=== PATIENT | male | born 1940 | race Two or more races ===

== ENCOUNTER 2016-11-26 09:22 | Inpatient (IN) | payer BC, MEDICARE, OTHER ==
[2016-11-26 11:00] LABS: Hematocrit 41 % (42-52); Hemoglobin 13.8 g/dl (14.0-18.0); Mean Corpuscular HGB Conc 34 g/dl (31-36); Mean Corpuscular Hemoglobin 31 pg (27-31); Mean Corpuscular Volume 91 fL (80-94); Mean Platelet Volume 10 um3 (7.4-10.4); Red Blood Count 4.47 10^6/ul (4.0-5.4); Red Cell Distribution Width 14 % (10.5-15); White Blood Count 11.3 10^3/ul (3.5-10.8)
[2016-11-26 11:11] LABS: ALT < 3 U/L (7-52); AST 10 U/L (13-39); Albumin 4.2 g/dL (3.2-5.2); Alkaline Phosphatase 61 U/L (34-104); Anion Gap 7 mmol/L (2-11); BUN/Creatinine Ratio 22.8 (8-20); Blood Urea Nitrogen 21 mg/dL (6-24); CO2 Carbon Dioxide 26 mmol/L (22-32); Calcium 9.1 mg/dL (8.6-10.3); Chloride 103 mmol/L (101-111); EGFR African American 103.4 (>60); EGFR Non-African American 80.4 (>60); Globulin 2.6 g/dL (2-4); Glucose 99 mg/dL (70-100); Potassium 4.1 mmol/L (3.5-5.0); Sodium 136 mmol/L (133-145); Total Protein 6.8 g/dL (6.4-8.9)
--- NOTE | 2016-11-26 11:19 | RAD ---
Indication: Ataxia. CT of the brain was performed without IV contrast. Comparison is made with a prior MRI dated August 18, 2012. Ventricular structures are midline. No midline shift is noted. The extraction spaces are unremarkable. There is no evidence of intracranial mass or hemorrhage. No other high or low density lesions are noted. Mastoid air cells and paranasal sinuses are unremarkable. Atherosclerosis of the right vertebral artery is noted. IMPRESSION: NO INTRACRANIAL MASS OR HEMORRHAGE IS NOTED.
--- NOTE | 2016-11-26 11:19 | RAD ---
Indication: Cough, weakness. 2 views of the chest including dual energy PA views are reviewed. No prior study is available for comparison. No mediastinal shift is noted. Heart is of normal size and configuration. Lung arias appear clear. IMPRESSION: No active cardiopulmonary disease is noted.
[2016-11-26] MEDS ORDERED: NS 0.9% 1000 ML* 1,000 ML IV ONE (11:24)
[2016-11-26] MEDS ORDERED: Acetaminophen TAB* 325 MG PO ONE (11:25)
[2016-11-26 13:59] LABS: Urine Bilirubin Negative (Negative); Urine Glucose Negative (Negative); Urine Nitrite Negative (Negative)
[2016-11-26] MEDS ORDERED: Levofloxacin 750 MG IVPREMIX(* 750 MG/150 ML BAG IVPB ONE (14:07)
--- NOTE | 2016-11-26 15:00 | ED ---
Kianna To Matthew, scribed for Alban Burton MD on 11/26/16 at 1059 . Complex/Multi-Sys Presentation - HPI Summary HPI Summary: A 76 y/o male presents to the ED for increased unsteadiness since 1.5 weeks ago. 1.5 weeks ago, the patient sustained a mechanical fall and fractured his nose. He was seen at [facility] and was to follow-up with an ENT. He has a Hx of Parkinson's disease; however, the unsteadiness is worse than baseline. He denies headache. The patient's also c/o a persistent cough. He also had fracture is skull in 2010 after sustaining a fall. - History Of Current Complaint Chief Complaint: EDGeneral Time Seen by Provider: 11/26/16 10:05 Hx Obtained From: Patient Onset/Duration: Lasting Weeks - 1.5, Still Present Timing: Constant Severity Currently: Moderate Severity Initially: Moderate Associated Signs And Symptoms: Positive: Fever, Other - unsteadiness. Negative : Headache - Allergies/Home Medications Allergies/Adverse Reactions: Allergies Allergy/AdvReac Type Severity Reaction Status Date / Time No Known Allergies Allergy Verified 11/26/16 11:53 Home Medications: Home Medications Amantadine CAP* [Symmetrel CAP*] 100 mg PO DAILY 11/26/16 [History Confirmed 05/05] Carbidopa/Levodop 25/100 MG(*) [Sinemet 25/100 TAB(*)] 1 tab PO SEE INSTRUCTIONS 11/26/16 [History Confirmed 11/26/16] Ibuprofen [Advil] 600 mg PO BID PRN 11/26/16 [History Confirmed 11/26/16] Mirtazapine TAB* [Remeron TAB*] 45 mg PO BEDTIME 11/26/16 [History Confirmed 05/05] Sennosides-Docusate Sodium [Senna-S 8.6-50 mg] 1 tab PO BEDTIME 11/26/16 [ History Confirmed 11/26/16] Sennosides-Docusate Sodium [Senna-S 8.6-50 mg] 1 tab PO TID 11/26/16 [History Confirmed 11/26/16] Sennosides-Docusate Sodium [Senna-S 8.6-50 mg] 2 tab PO DAILY 11/26/16 [History Confirmed 11/26/16] rOPINIRole TAB* [Requip TAB*] 1 mg PO QID 11/26/16 [History Confirmed 11/26/16] PMH/Surg Hx/FS Hx/Imm Hx Cardiovascular History: Denies: Hx Pacemaker/ICD Sensory History: Denies: Hx Hearing Aid Neurological History: Reports: Other Neuro Impairments/Disorders - memory loss, parkinson's dx from agent orange,left arm Psychiatric History: Denies: Hx Panic Disorder - Surgical History Surgery Procedure, Year, and Place: couple years ago,screws in face from falling ,[facility] Infectious Disease History: No Infectious Disease History: Denies: Traveled Outside the [place] in Last 30 Days - Family History Known Family History: Positive: Unknown - The patient is adopted. - Social History Lives: With Family Alcohol Use: None Hx Substance Use: No Substance Use Type: Reports: None Hx Tobacco Use: Yes Type: Cigars Review of Systems Positive: Fever Eyes: Negative ENT: Negative Cardiovascular: Negative Positive: Cough Gastrointestinal: Negative Genitourinary: Negative Musculoskeletal: Negative Skin: Negative Neurological: Other - unsteadiness Negative: Headache Psychological: Normal All Other Systems Reviewed And Are Negative: Yes Physical Exam Triage Information Reviewed: Yes Vital Signs On Initial Exam: Initial Vitals Temp Pulse Resp BP Pulse Ox 100.2 F 74 24 111/64 93 11/26/16 09:25 11/26/16 09:25 11/26/16 09:25 11/26/16 09:25 11/26/16 09:25 Vital Signs Reviewed: Yes Appearance: Positive: Well-Appearing, No Pain Distress Skin: Positive: Warm, Skin Color Reflects Adequate Perfusion, Dry Head/Face: Positive: Normal Head/Face Inspection Eyes: Positive: Normal ENT: Positive: Normal ENT inspection Neck: Positive: Supple, Nontender Respiratory/Lung Sounds: Positive: Breath Sounds Present, Other - Crackles in the left lower lung field Cardiovascular: Positive: RRR Abdomen Description: Positive: Nontender, Soft Bowel Sounds: Positive: Present Musculoskeletal: Positive: Normal, Strength/ROM Intact Neurological: Positive: Sensory/Motor Intact, Alert, Oriented to Person Place, Time Diagnostics - Vital Signs Vital Signs Temp Pulse Resp BP Pulse Ox 11/26/16 09:30 21 111/64 11/26/16 09:25 100.2 F 74 24 111/64 93 - Laboratory Lab Results: Lab Results 11/26/16 11/26/16 11/26/16 Range/Units 09:50 09:50 09:50 WBC 11.3 H (3.5-10.8) 10^3/ul RBC 4.47 (4.0-5.4) 10^6/ul Hgb 13.8 L (14.0-18.0) g/dl Hct 41 L (42-52) % MCV 91 (80-94) fL MCH 31 (27-31) pg MCHC 34 (31-36) g/dl RDW 14 (10.5-15) % Plt Count 206 (150-450) 10^3/ul MPV 10 (7.4-10.4) um3 Neut % (Auto) 87.8 H (38-83) % Lymph % (Auto) 4.5 L (25-47) % Edmunds % (Auto) 7.2 (1-9) % Eos % (Auto) 0.2 (0-6) % Baso % (Auto) 0.3 (0-2) % Absolute Neuts (auto) 9.9 H (1.5-7.7) 10^3/ul Absolute Lymphs (auto) 0.5 L (1.0-4.8) 10^3/ul Absolute Monos (auto) 0.8 (0-0.8) 10^3/ul Absolute Eos (auto) 0 (0-0.6) 10^3/ul Absolute Basos (auto) 0 (0-0.2) 10^3/ul Absolute Nucleated RBC 0 10^3/ul Nucleated RBC % 0 INR (Anticoag Therapy) 1.26 H (0.89-1.11) Sodium 136 (133-145) mmol/L Potassium 4.1 (3.5-5.0) mmol/L Chloride 103 (101-111) mmol/L Carbon Dioxide 26 (22-32) mmol/L Anion Gap 7 (2-11) mmol/L BUN 21 (6-24) mg/dL Creatinine 0.92 (0.67-1.17) mg/dL Est GFR ( Amer) 103.4 (>60) Est GFR (Non-Af Amer) 80.4 (>60) BUN/Creatinine Ratio 22.8 H (8-20) Glucose 99 (70-100) mg/dL Calcium 9.1 (8.6-10.3) mg/dL Total Bilirubin 1.00 (0.2-1.0) mg/dL AST 10 L (13-39) U/L ALT < 3 L (7-52) U/L Alkaline Phosphatase 61 (34-104) U/L C-Reactive Protein 72.70 H (< 5.00) mg/L Total Protein 6.8 (6.4-8.9) g/dL Albumin 4.2 (3.2-5.2) g/dL Globulin 2.6 (2-4) g/dL Albumin/Globulin Ratio 1.6 (1-3) Urine Color Urine Appearance Urine pH (5-9) Ur Specific Red[place] (1.010-1.030) Urine Protein (Negative) Urine Ketones (Negative) Urine Blood (Negative) Urine Nitrate (Negative) Urine Bilirubin (Negative) Urine Urobilinogen (Negative) Ur Leukocyte Esterase (Negative) Urine Glucose (Negative) 11/26/16 Range/Units 13:20 WBC (3.5-10.8) 10^3/ul RBC (4.0-5.4) 10^6/ul Hgb (14.0-18.0) g/dl Hct (42-52) % MCV (80-94) fL MCH (27-31) pg MCHC (31-36) g/dl RDW (10.5-15) % Plt Count (150-450) 10^3/ul MPV (7.4-10.4) um3 Neut % (Auto) (38-83) % Lymph % (Auto) (25-47) % Edmunds % (Auto) (1-9) % Eos % (Auto) (0-6) % Baso % (Auto) (0-2) % Absolute Neuts (auto) (1.5-7.7) 10^3/ul Absolute Lymphs (auto) (1.0-4.8) 10^3/ul Absolute Monos (auto) (0-0.8) 10^3/ul Absolute Eos (auto) (0-0.6) 10^3/ul Absolute Basos (auto) (0-0.2) 10^3/ul Absolute Nucleated RBC 10^3/ul Nucleated RBC % INR (Anticoag Therapy) (0.89-1.11) Sodium (133-145) mmol/L Potassium (3.5-5.0) mmol/L Chloride (101-111) mmol/L Carbon Dioxide (22-32) mmol/L Anion Gap (2-11) mmol/L BUN (6-24) mg/dL Creatinine (0.67-1.17) mg/dL Est GFR ( Amer) (>60) Est GFR (Non-Af Amer) (>60) BUN/Creatinine Ratio (8-20) Glucose (70-100) mg/dL Calcium (8.6-10.3) mg/dL Total Bilirubin (0.2-1.0) mg/dL AST (13-39) U/L ALT (7-52) U/L Alkaline Phosphatase (34-104) U/L C-Reactive Protein (< 5.00) mg/L Total Protein (6.4-8.9) g/dL Albumin (3.2-5.2) g/dL Globulin (2-4) g/dL Albumin/Globulin Ratio (1-3) Urine Color Estela Urine Appearance Clear Urine pH 5.0 (5-9) Ur Specific Red[place] 1.029 (1.010-1.030) Urine Protein Negative (Negative) Urine Ketones 1+ H (Negative) Urine Blood Negative (Negative) Urine Nitrate Negative (Negative) Urine Bilirubin Negative (Negative) Urine Urobilinogen Negative (Negative) Ur Leukocyte Esterase Negative (Negative) Urine Glucose Negative (Negative) Result Diagrams: 11/26/16 09:50 11/26/16 09:50 Lab Statement: Any lab studies that have been ordered have been reviewed, and results considered in the medical decision making process. - Radiology CXR Xray Interpretation: No Acute Changes - IMPRESSION: No active cardiopulmonary disease is noted. Radiology Interpretation Completed By: Radiologist - CT Brain CT CT Interpretation: No Acute Changes - IMPRESSION: NO INTRACRANIAL MASS OR HEMORRHAGE IS NOTED. CT Interpretation Completed By: Radiologist Complex Multi-Symp Course/Dx Course Of Treatment: Mr. Szymanski spiked a fever while he was here and he had a mild leukocytosis. His symptoms have been progressive for over a week but have gotten to the point that his can't manage him at home. - Diagnoses Provider Diagnoses: Fever, Weak - Physician Notifications Discussed Care Of Patient With: Dr. Lara Time Discussed With Above Provider: 14:30 Discharge - Discharge Plan Condition: Stable Disposition: ADMITTED TO [facility] Referrals: Radha Massey [Primary Care Provider] - The documentation as recorded by the Kianna vaughn Matthew accurately reflects the service I personally performed and the decisions made by me, Alban Burton MD.
[2016-11-26] MEDS ORDERED: Acetaminophen TAB* 325 MG PO PRN (17:04)
[2016-11-26] MEDS ORDERED: NS 0.9% 1000 ML* 1,000 ML IV SCH (17:15)
--- NOTE | 2016-11-26 20:50 | HP ---
CC: SUSAN Miranda HISTORY AND PHYSICAL: DATE OF ADMISSION: 11/26/16 PRIMARY CARE PHYSICIAN: SUSAN Miranda CHIEF COMPLAINT: Fall. HISTORY OF PRESENT ILLNESS: Juliocesar Szymanski is a 76-year-old male with a history of Parkinson's, who was brought in by his , stated that the patient was unsteady on his feet today and fell several times. The patient himself denies any problems and he was attempting to leave the ER. The patient 's also stated that over the past week, the patient had been behaving "off." He had been diffe rent and not himself. She describes him as more stubborn and more forgetful. The patient does have a history of baseline problem with short term memory, there was Parkinson's. Today in the morning, the patient coughed out copious amount of purulent sputum. He had been coughin g intermittently for the past couple of days. Also, in the emergency room, he has had a fever of 10 0.8 degrees. He appears to have pneumonia on his x-ray with a retrocardiac infiltrate, although it is read by the radiologist as negative. He is going to be placed on overnight observation for intra venous hydration on antibiotics. PAST MEDICAL HISTORY: 1. History of memory loss. 2. History of Parkinson's. 3. History of bilateral inguinal hernia repairs. 4. History of agent orange exposure while in service in [place]. MEDICATIONS: Include: 1. Sinemet 25/100. The patient takes two tablets at 5 a.m., 9 a.m., 1 p.m., 5 p.m. and 9 p.m. 2. The patient also takes Requip 1 mg tablet at 5 a.m., 9 a.m., 1 p.m. and 5 p.m. 3. Amantadine. The patient takes at 1 p.m. daily and mirtazapine at 5 p.m. daily. 4. The patient also is on a strict regimen with Senna and docusate combination of 1 tablet at bedti me, 1 tablet 3 times a day and 2 tablets daily in the morning. ALLERGIES: No known drug allergies. FAMILY HISTORY: The patient is adopted. SOCIAL HISTORY: The patient denies tobacco, alcohol or drug use. He is retired, lives with his wif e, who is his surrogate. His 's first name is Tana. REVIEW OF SYSTEMS: Please see history of present illness. The patient is rather as poor historian. The patient's stated that the patient had unsteady weight and had been weak for the past temo ral days. Apparently, the appetite had been good. He had been afebrile. He has been coughing for the past couple of days. She did not notice him being febrile and the patient also denies any fevers . All the remaining 14 systems were reviewed with the patient and the patient's and were otherwis e negative. PHYSICAL EXAMINATION GENERAL: The patient is a very pleasant 76-year-old male who is in no acute distress. The patient is alert, awake, and oriented x3 although he states that his age is 74 years old. VITAL SIGNS: Blood pressure of 125/64, heart rate of 66 and regular, respiratory rate 19, oxygen sa turation is 97% on room air, temperature of 97.2. HEENT: Head is atraumatic and normocephalic. Eyes, pupils equal, round, reactive to light and acco mmodation. Oropharynx clear. Mucosa moist. NECK: Supple. No JVD. No bruits bilaterally. RESPIRATORY: Rhonchi in the left lung base, otherwise clear. CARDIOVASCULAR: Regular rate and rhythm. No murmur. ABDOMEN: Soft and nontender. Bowel sounds present in all 4 quadrants. EXTREMITIES: There is no edema. Pulses +2 bilaterally. No clubbing or cyanosis. NEUROLOGIC: On neuro evaluation speech clear. Cranial nerves II through XII are grossly intact. M otor strength is 5/5 bilaterally. The patient's gait is markedly abnormal and he used to ambulate w ith at least one person assist and a walker. PSYCHIATRIC: Pleasant and comfortable on evaluation with no evidence of anxiety or depression. DIAGNOSTIC STUDIES: Brain CT obtained on 11/26/16. "No intracranial mass or hemorrhage noted." Portable chest x-ray. Impression: "No active cardiopulmonary disease is noted." LABORATORY DATA: White blood cell count of 11.3, hemoglobin of 13.8, hematocrit of 41, and platelet s of 206. Sodium was 136, potassium 4.1, chloride 103, carbon dioxide 26, BUN 21, creatinine 0.92. Liver func tion is unremarkable. C-reactive protein of 72. Urinalysis was unremarkable apart from trace of ketones. Influenza A and B were negative. ASSESSMENT AND PLAN: A 76-year-old male with a history of Parkinson's, comes in with generalized we akness, unsteady gait. The patient clinically appears to have pneumonia. For community acquired pneumonia, the patient received one dose of Levaquin in the emergency room. Due to his history of memory issues, I am going to continue him on different medications of ceftriax one and azithromycin. Urine legionella and Strep pneumo antigens are going to be obtained. I will also place him on gentle intravenous hydration. In regards to the patient's Parkinson's medications, those are going to be continued as previously s cheduled at home. For DVT prophylaxis, the patient is going to be placed on heparin subcutaneously. The patient appears slightly dehydrated and she is going to be placed on intravenous saline as sha pachecod above. Due to history of falls, physical therapy, occupational therapy will see the patient in evaluation. Code status is full. TIME SPENT: Approximately 65 minutes were spent on the admission of this patient, more than half th at time was spent [id number] with the patient during the interview and physical exam. [id number]/[facility] #: [id number]
[2016-11-26] MEDS ORDERED: Senna/Docusate (NF) TAB PO SCH ×2 (21:00)
[2016-11-26] MEDS ORDERED: Docusate CAP* 100 MG PO SCH (21:00)
[2016-11-26] MEDS: Docusate CAP* 100 MG PO SCH (21:07)
[2016-11-26] MEDS: Senna TAB PO SCH (21:07)
[2016-11-26] MEDS: Carbidopa/Levodop 25/100 MG TAB(*) PO SCH (21:07)
[2016-11-26] MEDS: Heparin VIAL(*) 5000 UNITS/ML VIAL (FIVE THOUSAND) SUBCUT SCH (21:07)
[2016-11-27] MEDS: Carbidopa/Levodop 25/100 MG TAB(*) PO SCH ×5 (05:10→20:57)
[2016-11-27] MEDS: rOPINIRole TAB* 1 MG PO SCH ×4 (05:10→17:13)
[2016-11-27] MEDS: Senna TAB PO SCH ×5 (05:10→20:59)
[2016-11-27] MEDS: Heparin VIAL(*) 5000 UNITS/ML VIAL (FIVE THOUSAND) SUBCUT SCH ×3 (05:11→21:00)
[2016-11-27] MEDS: Docusate CAP* 100 MG PO SCH ×5 (05:55→21:00)
[2016-11-27 06:08] LABS: Hematocrit 37 % (42-52); Hemoglobin 12.3 g/dl (14.0-18.0); Mean Corpuscular HGB Conc 34 g/dl (31-36); Mean Corpuscular Hemoglobin 31 pg (27-31); Mean Corpuscular Volume 92 fL (80-94); Mean Platelet Volume 9 um3 (7.4-10.4); Red Blood Count 4.02 10^6/ul (4.0-5.4); Red Cell Distribution Width 14 % (10.5-15); White Blood Count 5.9 10^3/ul (3.5-10.8)
[2016-11-27 06:33] LABS: BUN/Creatinine Ratio 22.8 (8-20); Calcium 8.4 mg/dL (8.6-10.3); EGFR African American 103.4 (>60); EGFR Non-African American 80.4 (>60)
[2016-11-27] MEDS: Azithromycin IV(*) 500 MG in NS 0.9% 250 ML* 250 ML IVPB SCH (08:29)
[2016-11-27] MEDS ORDERED: Senna/Docusate (NF) TAB PO SCH (09:00)
[2016-11-27] MEDS: cefTRIAXone VIAL(*) 1,000 MG in NS 0.9% 50 ML* 50 ML IVPB SCH (10:02)
--- NOTE | 2016-11-27 11:59 | PN ---
Subjective Date of Service: 11/27/16 Interval History: HOSPITALIST PROGRESS NOTE Patient seen and examined at bedside. He feels better today. Still has productive cough with grayish sputum, but denies dyspnea or chest pain. Tolerating diet well. Transferred from bed to chair with assistance, but has not ambulated yet. Family History: Unchanged from Admission Social History: Unchanged from Admission Past Medical History: Unchanged from Admission Objective Active Medications: Acetaminophen (Tylenol Tab*) 650 mg PO Q4H PRN PRN Reason: FEVER/PAIN Amantadine HCl (Symmetrel Cap*) 100 mg PO 1300 [facility] Carbidopa/Levodopa (Sinemet 25/100 Tab(*)) 2 tab PO 2100 [facility] Last Admin: 11/26/16 21:07 Dose: 2 tab Carbidopa/Levodopa (Sinemet 25/100 Tab(*)) 2 tab PO 0500,0900,1300,1700 [facility] Last Admin: 11/27/16 08:27 Dose: 2 tab Docusate Sodium (Colace Cap*) 200 mg PO 0600 [facility] Last Admin: 11/27/16 05:55 Dose: 200 mg Docusate Sodium (Colace Cap*) 100 mg PO 1000,1400,1800,2200 [facility] Last Admin: 11/27/16 08:28 Dose: 100 mg Heparin Sodium (Porcine) (Heparin Vial(*)) 5,000 units SUBCUT Q8HR [facility] Last Admin: 11/27/16 05:11 Dose: 5,000 units Ceftriaxone Sodium 1,000 mg/ (Sodium Chloride) 50 mls @ 200 mls/hr IVPB Q24H [facility] Last Admin: 11/27/16 10:02 Dose: 200 mls/hr Azithromycin 500 mg/ Sodium (Chloride) 250 mls @ 250 mls/hr IVPB Q24H [facility] Last Admin: 11/27/16 08:29 Dose: 250 mls/hr Mirtazapine (Remeron Tab*) 45 mg PO 1700 [facility] Ropinirole HCl (Requip Tab*) 1 mg PO 0500,0900,1300,1700 [facility] Last Admin: 11/27/16 08:29 Dose: 1 mg Senna (Senokot Tab*) 2 tab PO 0600 [facility] Last Admin: 11/27/16 05:10 Dose: 2 tab Senna (Senokot Tab*) 1 tab PO 1000,1400,1800,2200 [facility] Last Admin: 11/27/16 08:28 Dose: 1 tab Vital Signs 11/26/16 11/27/16 23:52 04:16 Temperature 97.9 F 97.6 F Pulse Rate 61 57 Respiratory 16 16 Rate Blood Pressure 120/63 142/65 (mmHg) O2 Sat by Pulse 95 97 Oximetry Oxygen Devices in Use Now: None Appearance: Pleasant elderly male sitting up in a chair in NAD. Eyes: No Scleral Icterus Ears/Nose/Mouth/Throat: Mucous Membranes Moist Neck: Trachea Midline Respiratory: Symmetrical Chest Expansion and Respiratory Effort, - - BS+ bilaterally with coarse crackles on right base Cardiovascular: RRR - Normal S1 and S2 Abdominal: NL Sounds; No Tenderness; No Distention Extremities: No Edema Neurological: Alert and Oriented x 3, NL Muscle Strength and Tone Lines/Tubes/Other Access: Clean, Dry and Intact Peripheral IV Nutrition: Taking PO's Result Diagrams: 11/27/16 05:22 11/27/16 05:22 Assess/Plan/Problems-Billing Assessment: Mr. Szymanski is a 76yo M with PMH of Parkison's disease, who presented to ED with c/o weakness and falls, found to have pneumonia. - Patient Problems (1) Pneumonia Comment: - Community acquired pneumonia. - CxR reviewed - agree with retrocardiac infiltrate. - Cultures show no growth so far and Influenza was negative. - Continue Ceftriaxone and Zithromax. - Follow Legionella and pneumococal Ags. (2) Physical deconditioning Comment: - Secondary to infection on patient with known Parkinson's. - Awaiting PT evaluation. (3) Parkinson disease Comment: - Continue Amantadine and Sinemet. (4) DVT prophylaxis Comment: - SQ heparin. (5) Full code status Status and Disposition: Inpatient. Anticipate d/c in AM. With patient's permission his (Teresa Szymanski) was called and I left a message asking her to call me back.
[2016-11-27] MEDS ORDERED: Amantadine CAP* 100 MG PO SCH (13:00)
[2016-11-27] MEDS ORDERED: Mirtazapine TAB* 15 MG PO SCH (17:00)
[2016-11-27] MEDS ORDERED: CMCS Melatonin (NF) 3 MG TAB PO PRN (20:52)
[2016-11-28] MEDS: Senna TAB PO SCH ×2 (06:42→08:33)
[2016-11-28] MEDS: Heparin VIAL(*) 5000 UNITS/ML VIAL (FIVE THOUSAND) SUBCUT SCH (06:42)
[2016-11-28] MEDS: rOPINIRole TAB* 1 MG PO SCH ×2 (06:44→08:33)
[2016-11-28] MEDS: Carbidopa/Levodop 25/100 MG TAB(*) PO SCH ×2 (06:46→08:33)
[2016-11-28] MEDS: Docusate CAP* 100 MG PO SCH ×2 (06:47→08:33)
[2016-11-28] MEDS: Azithromycin IV(*) 500 MG in NS 0.9% 250 ML* 250 ML IVPB SCH (08:33)
[2016-11-28] MEDS: cefTRIAXone VIAL(*) 1,000 MG in NS 0.9% 50 ML* 50 ML IVPB SCH (10:03)
[2016-11-28 11:12] VITALS: BP 149/67
[2016-11-28] MEDS ORDERED: ceFUROXime TAB(*) 250 MG PO ONE (12:15)
--- NOTE | 2016-11-28 14:09 | DS ---
DISCHARGE SUMMARY: DATE OF ADMISSION: 11/26/16 DATE OF DISCHARGE: 11/28/16 PRIMARY CARE PROVIDER: Radha Massey NP, at the [facility]. DISCHARGE DIAGNOSES: 1. Community-acquired pneumonia. 2. Deconditioning. 3. Mild sundowning. SECONDARY DIAGNOSES: 1. Parkinson's disease. 2. Paroxysmal atrial fibrillation. 3. Mild cognitive disorder. 4. Vitamin B12 deficiency anemia. 5. History of visual hallucinations. 6. Chronic back pain. 7. Major depression. 8. History of fall. 9. Chronic PTSD following combat. 10. Dysphagia. 11. History of basal cell carcinoma of the scalp. 12. Status post bilateral inguinal hernia repairs. MEDICATION LIST: 1. Amantadine 100 mg p.o. at 1 p.m. 2. Carbidopa/levodopa 25/100 mg two tablets p.o. at 5 a.m. 9 a.m. 1 p.m. 5 p.m. and 2100. 3. Ibuprofen 600 mg p.o. b.i.d. as needed for pain. 4. Mirtazapine 45 mg p.o. at 5 p.m. 5. Requip 1 mg p.o. at 5 a.m., 9 a.m., 1 p.m., and 5 p.m. 6. Sennoside/docusate 8.6/50 mg two tablets p.o. 4 times a day as needed to soften stool as prescribed by his PCP, but the patient is taking 2 tablets p.o. in the morning and then 1 tablet 3 times a day, plus one other tablet at bedtime. 7. Melatonin 6 mg p.o. at bedtime as needed for insomnia. New Medications: 1. Zithromax 250 mg p.o. daily for 4 more days. 2. Ceftin 250 mg p.o. b.i.d. for 5 more days. 3. Guaifenesin 600 mg p.o. b.i.d. as needed for cough. HOSPITAL COURSE: Mr. Szymanski is a 76-year-old male with a past medical history as stated above, that was brought into the emergency room after sustaining a fall at home. As per HPI, the patient's stated that the patient was behaving "off," confused, more stubborn, and forgetful. It was also noted that the patient had coughed up copious amounts of purulent sputum. For more details about his presentation, I refer you to his history and physical. The patient was admitted under the impression of community-acquired pneumonia and his chest x-ray was suggestive of retrocardiac infiltrate. The patient was started on antibiotics and he became afebrile with stable vital signs. He had improvement of his minimal leukocytosis and blood cultures showed no growth so far and influenza test was negative. Please note that at the time of this dictation, his pneumococcal and legionella antigens in the urine are pending and the results should be followed as outpatient. The patient was seen by physical therapy and he was felt to have no skilled PT needs at this time. He also did well with occupational therapy. He was felt to be stable for discharge today and he was referred to S to receive services at home. The patient did experience mild sundowning while in the hospital and in talking to his , this is not unusual. She describes a prior admission in [place] in 2010 when the patient became very confused, especially in the evenings. On this admission, he did have some confusion at night, but he did not require medications and nursing staff was able to redirection him. This morning, the patient's mental status appears to be at his baseline. He is not confused. He states that he is feeling well and he was deemed stable to be discharged home today. PHYSICAL EXAMINATION: Vital Signs: Temperature 97.9, heart rate is 65, respiratory rate is 16, oxygen saturation 96% on room air, and blood pressure is 146/64. General Appearance: The patient is a pleasant, elderly male, lying in bed, in no acute distress. CVS: Normal S1 and S2. Regular rate and rhythm. Chest: Breath sounds present bilaterally with scattered rhonchi in the right base, but no other added sounds. Abdomen is soft, nontender, and nondistended. Bowel sounds present. Extremities: No edema. Neuro: He is alert, awake, and oriented x3. Able to move all 4 extremities. DIET: Regular diet. ACTIVITY: As tolerated. DISPOSITION: To home with visiting nurse services. STATUS WHILE IN THE HOSPITAL: Inpatient. Please keep in mind, this is a summarized version of this patient's hospital stay. If you need more information, please feel free to call me at [phone] or please obtain the full medical records. The patient will follow up with his primary care provider, Radha Massey NP, in 4 to 7 days. The patient's was called and updated about this plan. She is in agreement with discharge. All questions were answered to their satisfaction. TIME SPENT: Approximately 45 minutes was spent to complete this discharge. CC: Radha Massey NP* [id number]/[facility] #: [id number] MTDD
== END 2016-11-28 12:20 | disposition home health service (06) | DRG 194 ==
LOC: ED 09:22 → MED 15:22 → OBSVTOIN 11-27 11:44
PROVIDERS: ADMIT Internal Medicine; ATTEND Internal Medicine
DX: J18.9 Pneumonia, unspecified organism (principal); F05 Delirium due to known physiological condition; G20 Parkinson's disease; D51.9 Vitamin B12 deficiency anemia, unspecified; E86.0 Dehydration; I48.0 Paroxysmal atrial fibrillation; F32.9 Major depressive disorder, single episode, unspecified; F43.12 Post-traumatic stress disorder, chronic; F09 Unspecified mental disorder due to known physiological condition; G89.29 Other chronic pain; M54.9 Dorsalgia, unspecified; Z91.81 History of falling; Z85.89 Personal history of malignant neoplasm of other organs and systems; Z87.891 Personal history of nicotine dependence
CPT/HCPCS: 36415; 70450; 71020; 80048; 80053; 81003; 85025; 85610; 86140; 87040; 87502; 87899; 99406; A9270-GY; G0378; G8978-GP-CI; G8979-GP-CH; G8980-GP-CI; J0456; J0696; J1644

== ENCOUNTER 2018-01-13 12:38 | Emergency (ER) | payer SELFPAY ==
[2018-01-13] MEDS ORDERED: Tetan/Diph/Pertus SYR(Tdap)* 0.5 ML SYR(BOOSTRIX) use SYR IM ONE (13:15)
--- NOTE | 2018-01-13 13:39 | RAD ---
HISTORY: Unwitnessed fall COMPARISONS: November 26, 2016 VIEWS: 1: frontal portable view of the chest at 1:30 PM FINDINGS: LINES AND TUBES: None. CARDIOMEDIASTINAL SILHOUETTE: There is a retrocardiac density on the right of the vertebral column. This can be identified on the November 26, 2016 examination and is stable, and may represent a prominent osteophyte. The stability suggests an indolent process. The cardiomediastinal silhouette is otherwise normal for portable technique. PLEURA: The costophrenic angles are sharp. No pleural abnormalities are noted. LUNG PARENCHYMA: The lungs are clear. ABDOMEN: The upper abdomen is clear. There is no subphrenic gas. BONES AND SOFT TISSUES: No bone or soft tissue abnormalities are noted. IMPRESSION: NO ACTIVE CARDIOPULMONARY DISEASE.
[2018-01-13 13:53] LABS: ABS Basophils 0 10^3/ul (0-0.2); ABS Eosinophils 0 10^3/ul (0-0.6); ABS Lymphocytes 0.6 10^3/ul (1.0-4.8); ABS Monocytes 0.6 10^3/ul (0-0.8); ABS Neutrophils 5.4 10^3/ul (1.5-7.7); ABS Nucleated RBC 0 10^3/ul; Eosinophil % 0.2 % (0-6); Hematocrit 36 % (42-52); Hemoglobin 12.3 g/dl (14.0-18.0); Lymphocyte % 8.5 % (25-47); Mean Corpuscular HGB Conc 34 g/dl (31-36); Mean Corpuscular Hemoglobin 32 pg (27-31); Mean Corpuscular Volume 92 fL (80-94); Mean Platelet Volume 8.2 um3 (7.4-10.4); Nucleated Red Blood Cells % 0; Platelet Count 171 10^3/ul (150-450); Red Blood Count 3.89 10^6/ul (4.0-5.4); Red Cell Distribution Width 14 % (10.5-15); White Blood Count 6.6 10^3/ul (3.5-10.8)
--- NOTE | 2018-01-13 13:56 | ED ---
Head Injury - HPI Summary HPI Summary: Patient here with fall around 8:30 this morning. He reports he was outside and lost his footing, falling forward into some rocks in the yard. Reports he was outside because he had "toxicity in (his) blood" and wanted to "take care of it ". He denies loss of consciousness however does not recall all the details of the event and does have baseline dementia. reports she told him not to go out the back door as it's not a safe area to walk which she did anyway - shortly after going through the door is where/when he fell. admits she was not with him at the time of fall however she found him soon after and reports he was alert with blood coming from a wound on the back of his head. She cleaned up his head and felt he was acting enough like himself to continue on to his day care program. At program, staff noted he became increasingly confused (more so than baseline per ), was not eating - simply pushing food around his plate - and so she was called. Given his history of head injury this morning, she brought him here for evaluation. Patient denies headache although he does report some mild photophobia with intermittent nausea. Denies vomiting, change in vision, neck pain, numbness, tingling, weakness, chest pain , shortness of breath, abdominal pain back pain or extremity pain. His reports he has a history of atrial fibrillation for which she treats with Coumadin. Also has a history of Parkinson's for which he takes Sinemet and is followed by neurology to the [facility]. He is a war vet w/ a h/o exposure to agent orange. H/o Rt knee pain as well (appears to have arthritis). - History Of Current Complaint Chief Complaint: EDWeakness Stated Complaint: FALL/HEAD LAC Time Seen by Provider: 01/13/18 12:46 Hx Obtained From: Patient, Family/Team Facilitator - Pain Intensity: 0 - Allergies/Home Medications Allergies/Adverse Reactions: Allergies Allergy/AdvReac Type Severity Reaction Status Date / Time No Known Allergies Allergy Verified 01/13/18 12:40 PMH/Surg Hx/FS Hx/Imm Hx Previously Healthy: Yes Endocrine/Hematology History: Reports: Hx Anticoagulant Therapy - coumadin Cardiovascular History: Reports: Hx Atrial Fibrillation Denies: Hx Pacemaker/ICD GI History: Reports: Other GI Disorders - constipation Musculoskeletal History: Reports: Hx Arthritis - Rt knee Sensory History: Reports: Hx Contacts or Glasses Denies: Hx Hearing Aid Opthamlomology History: Reports: Hx Contacts or Glasses Neurological History: Reports: Hx Dementia, Other Neuro Impairments/Disorders - memory loss, parkinson's dx from agent orange,left arm Psychiatric History: Reports: Hx Depression Denies: Hx Panic Disorder - Cancer History Cancer Type, 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 - Social History Occupation: Retired Lives: With Family - Alcohol Use: None Hx Substance Use: No Substance Use Type: Reports: None Hx Tobacco Use: Yes - cigars Smoking Status (MU): Current Some Day Smoker Type: Cigars Amount Used/How Often: light smoker Review of Systems Constitutional: Negative Negative: Fatigue Positive: Photophobia - mild. Negative: Blurred Vision, Diplopia ENT: Negative Negative: Epistaxis, Dental Pain, Sore Throat, Ear Ache, Nasal Discharge Cardiovascular: Negative Negative: Chest Pain Respiratory: Negative Negative: Shortness Of Breath Gastrointestinal: Negative Negative: Abdominal Pain, Vomiting, Diarrhea, Nausea Positive: no symptoms reported Musculoskeletal: Negative Skin: Other - lac posterior scalp Neurological: Other - inc confusion Positive: Slurred Speech - inc from baseline per . Negative: Headache, Weakness, Paresthesia, Numbness, Syncope Psychological: Other - inc confusion All Other Systems Reviewed And Are Negative: Yes Physical Exam Triage Information Reviewed: Yes Vital Signs On Initial Exam: Initial Vitals Temp Pulse Resp BP Pulse Ox 99.3 F 67 16 112/55 95 01/13/18 12:40 01/13/18 12:40 01/13/18 12:40 01/13/18 12:40 01/13/18 12:40 Vital Signs Reviewed: Yes Appearance: Positive: Well-Appearing, No Pain Distress, Thin Skin: Positive: Warm, Skin Color Reflects Adequate Perfusion - linear puncture/ lac over posterior scalp - oozing blood w/ surrounding ecchymosis - mild to no edema Head/Face: Positive: Normal Head/Face Inspection - lac as mentioned above - no battlesign, no step off, no racoon eyes. Negative: TMJ Tenderness Eyes: Positive: Normal, EOMI, KIMBERLY - no observed photophobia ENT: Positive: Normal ENT inspection, Hearing grossly normal, Pharynx normal Dental: Negative: Dental Fracture @ Neck: Positive: Supple, Nontender Respiratory/Lung Sounds: Positive: Breath Sounds Present Cardiovascular: Positive: Pulses are Symmetrical in both Upper and Lower Extremities, IRR Abdomen Description: Positive: Nontender, Soft Bowel Sounds: Positive: Present Musculoskeletal: Positive: Strength/ROM Intact, Other - Rt knee joint is arthritic appearance compared to Lt Neurological: Positive: Sensory/Motor Intact, CN Intact II-III. Negative: Alert , Oriented to Person Place, Time - struggles w/ year but knows month, location, president - recalls his branch of but unsure of details re: fall earlier this morning Psychiatric: Positive: Normal - pleasant, NAD, in good spirits, cooperative Diagnostics - Vital Signs Vital Signs Temp Pulse Resp BP Pulse Ox 01/13/18 12:40 99.3 F 67 16 112/55 95 - Laboratory Result Diagrams: 01/13/18 13:45 01/13/18 13:45 Lab Statement: Any lab studies that have been ordered have been reviewed, and results considered in the medical decision making process. Head Injury Course/Dx - Diagnoses Provider Diagnoses: Fall from standing, Concussion, Scalp laceration Discharge - Sign-Out/Discharge Documenting (check all that apply): Discharge - Discharge Plan Condition: Stable Disposition: HOME Patient Education Materials: Fall Prevention for Older Adults (ED), Concussion (ED), Laceration (ED), Skin Adhesive Care (ED), Steristrips (ED) Referrals: Radha Massey [Primary Care Provider] - Additional Instructions: You appear to have sustained a mechanical fall by walking in an area with uneven ground earlier today. It is in her best interest to avoid the surfaces to prevent future falls. He may also assess her house for risks of falls such as area rugs, furniture jetting out into a walkway, etc. Since your fall, you appear to have a head injury called a concussion. This may result in headache, light sensitivity, nausea, increased confusion, difficulty sleeping and restlessness in general. It is important that she follow-up with your primary care provider in the next 2 days for recheck of your symptoms. Call today to schedule an appointment. If they seem to be worse , he may benefit from further imaging. It is also important that she keep your care provider nearby over the next 24-48 hours to observe her symptoms and behaviors for change. *If you become lethargic, weak, slurr your speech, passed out again, etc. return to the emergency department For the wound on your head, you have had Steri-Strips and Dermabond glue placed to keep the wound closed and protected. It is important that you avoid rubbing or washing this area while dressing is in place. Steri-Strips should fall off on their own in the next 5 days. If you develop redness, swelling, purulent drainage, bloody drainage that does not stop after pressure with 20 minutes, fevers or chills, seek medical attention immediately to assess for infection. Have your medical care provider assessed this wound in the next 2 days after follow-up appointment. - Billing Disposition and Condition Condition: STABLE Disposition: HOME
[2018-01-13 14:09] LABS: INR 2.15 (0.77-1.02)
[2018-01-13 14:17] LABS: EGFR Non-African American 73.7 (>60)
--- NOTE | 2018-01-13 14:34 | RAD ---
HISTORY: Status post fall, head trauma, questionable loss of consciousness COMPARISONS: None TECHNIQUE: Multiple contiguous axial CT scans were obtained of the cervical spine without intravenous contrast, with coronal and sagittal multiplanar reformations. FINDINGS: BRAIN: The visualized brain is unremarkable CENTRAL CANAL: Evaluation of the central canal is limited on CT technique; however, there is no obvious canalicular mass or epidural hemorrhage. ALIGNMENT: The alignment is normal, without subluxation or dislocation. VERTEBRAL BODIES: There is multilevel anterolateral marginal osteophyte formation. There is no displaced fracture. JOINTS: There is osteoarthritis of the lateral axial articulation and of the facet joints. MUSCULATURE: Unremarkable INTERVERTEBRAL DISCS: There is diffuse loss of intervertebral disc height. AXIAL IMAGES: C2-C3: There is no osseous neural foraminal narrowing or central canal stenosis. C3-C4: There is bilateral uncovertebral hypertrophy and facet hypertrophy. There is no significant osseous neural foraminal area or central canal stenosis. C4-C5: There is no osseous neural foraminal narrowing or central canal stenosis. C5-C6: There is bilateral uncovertebral hypertrophy. There is mild bilateral neural foraminal narrowing. There is no osseous central canal stenosis. C6-C7: There is no osseous neural foraminal narrowing or central canal stenosis. C7-T1: There is no osseous neural foraminal narrowing or central canal stenosis. SOFT TISSUES: There is constipation of the carotid bifurcations and of the right vertebral artery.. The prevertebral fat stripe is preserved. OTHER: None. IMPRESSION: 1. DEGENERATIVE DISC DISEASE AND OSTEOARTHRITIS. 2. NO ACUTE OSSEOUS INJURY TO THE CERVICAL SPINE. 3. ATHEROSCLEROSIS.
--- NOTE | 2018-01-13 14:37 | RAD ---
INDICATION: Fall. Intracranial injury. COMPARISON: CT brain November 26, 2016 TECHNIQUE: Noncontrast axial source images were acquired from the skull base to the vertex. FINDINGS: Ventricles/sulci: The ventricles and cisterns are normal in size and configuration for age. Brain parenchyma: There is no focal parenchymal finding, evidence of intracranial mass, or intracranial mass effect. Intracranial hemorrhage:None. Extra-axial spaces: There are no abnormal extra axial fluid collections or evidence of extra-axial mass. Calvarium: There is no calvarial fracture or other calvarial abnormality. Scalp: There is no evidence of scalp or extracalvarial soft tissue abnormality. Paranasal sinuses/mastoid: There is a mucous retention cyst or polyp in the right maxillary antrum. The mastoid air cells are clear. Other: The vertebral arteries are intact and there our calcifications in the right vertebral artery at the skull base, unchanged.. IMPRESSION: No acute intracranial findings
[2018-01-13 15:33] LABS: Urine Appearance Clear; Urine Blood Negative (Negative); Urine Color Amber; Urine Ketones Trace (Negative); Urine Protein Negative (Negative); Urine Specific Gravity 1.023 (1.010-1.030); Urine Urobilinogen Negative (Negative)
[2018-01-13 16:44] VITALS: BP 112/78
== END 2018-01-13 16:42 | disposition home or self-care (01) ==
LOC: ED 12:38
DX: S01.01XA Laceration without foreign body of scalp, initial encounter (principal); S06.0X9A Concussion with loss of consciousness of unspecified duration, initial encounter; W19.XXXA Unspecified fall, initial encounter; Y92.9 Unspecified place or not applicable; H53.149 Visual discomfort, unspecified; Z72.0 Tobacco use
CPT/HCPCS: 36415; 70450; 71045; 72125; 80053; 81003; 83605; 83735; 84443; 84484; 85025; 85610; 85730; 90715; 93005; 99284